=== PATIENT | male | born 1980 | race Caucasian/White ===

== ENCOUNTER 2024-04-28 12:12 | Emergency (ER) | payer MEDICAID ==
[~2024-04-28] VITALS: Ht 175.3 cm; Wt 79.6 kg
[2024-04-28 12:16] VITALS: BP 141/93; PULSE 96; RESP 16; TEMP 99.1; O2SAT 96
[2024-04-28] MEDS: TETanus/Pertussis (Acell)/Diphther VAC/PF (Tdap-Adult) 0.5ml syringe IMVAC ONE (14:30)
[2024-04-28] MEDS ORDERED: AMOX-580 PO (14:55)
[2024-04-28] MEDS ORDERED: HYDR-3972 PO (14:55)
== END 2024-04-28 15:16 | disposition home or self-care (01) ==
LOC: ER 12:13
DX: S01.512A Laceration without foreign body of oral cavity, initial encounter (principal); K14.6 Glossodynia; Z79.2 Long term (current) use of antibiotics; Z79.899 Other long term (current) drug therapy; X58.XXXA Exposure to other specified factors, initial encounter; Y93.72 Activity, wrestling; Y92.89 Other specified places as the place of occurrence of the external cause; Y99.8 Other external cause status
CPT/HCPCS: 90471; 90715; 99283